=== PATIENT | male | born 1995 | race Caucasian/White ===

== ENCOUNTER 2025-03-05 11:07 | Emergency (ER) | payer SELFPAY ==
[2025-03-05] VITALS (8 sets, daily range): BP systolic 128–165; BP diastolic 91–106; PULSE 108–120; RESP 14–21; TEMP 36.6–38.9; O2SAT 97–99
--- NOTE | ~2025-03-05 | US_ITS ---
EXAMINATION: US scrotum doppler DATE: 03/05/2025 12:29 INDICATION: Right testicular pain TECHNIQUE: Testicular sonogram utilizing grayscale and Doppler COMPARISON: None. FINDINGS: The right testis measures 4.0 x 2.5 x 2.6 cm. The left testis measures 3.4 x 2.5 x 3.5 cm. Symmetric normal grayscale appearance to both testes. There is normal vascular flow to both testes. The right e pididymis is normal with normal vascular flow. The left epididymis is normal with normal vascular dewayne w. There is no varicocele or hydrocele. IMPRESSION: 1. Normal scrotal ultrasound. Reviewed, dictated and finalized at location A.
--- NOTE | 2025-03-05 12:05 | ED.GENADULT ---
HPI - General Adult General Chief complaint: Urogenital-Male Stated complaint: r/ torsion Time Seen by Provider: 03/05/25 11:47 History of Present Illness HPI narrative: 29-year-old male presents emergency department for evaluation for right-sided testicular pain. Patient began developing sore throat a few days ago and right testicular pain this morning at 6:00 a.m.. Patient denies any falls or injuries patient denies any recent coughs colds or fevers and denies any pain with urination. Patient denies any high-risk sexual behavior. Patient initially presented to [facility] and was referred to our hospital for ultrasound. Patient reports he was diagnosed with strep throat and treated with IM penicillin today Related Data Allergies Allergy/AdvReac Type Severity Reaction Status Date / Time No Known Allergies Allergy Verified 03/05/25 15:12 Review of Systems Review of Systems: All systems reviewed & are unremarkable except as noted in HPI and below Exam Narrative: APPEARANCE: Well appearing, no pain, no distress, well-nourished. HEAD: normocephalic, atraumatic. EYES: PERRLA/EOMI, conjunctivae clear. NOSE: Normal no drainage EARS:TMS clear with good light reflex. THROAT: Pharynx clear, no exudate. NECK: Supple. No adenopathy, no masses. RESPIRATORY: Airway patent, respirations nonlabored. Clear to auscultation bilaterally, no rales, rhonchi, wheezing. CARDIOVASCULAR: Regular rate and rhythm without murmurs rubs or gallops. ABDOMINAL: Soft, nontender, nondistended, normal bowel sounds MUSCULOSKELETAL: Moves all extremities. Strength/ROM intact, No edema, No calf tenderness. NEURO: Alert. Cranial nerves II through XII intact. Good gait. Good coordination SKIN: Warm, dry. Normal Color General exam: Right testicular tenderness, and no evidence of cellulitis, edema or high-riding testicle Course Vital Signs Vital signs: Vital Signs Temperature 98 F 03/05/25 11:05 Pulse Rate 108 H 03/05/25 11:05 Respiratory Rate 20 03/05/25 11:05 Blood Pressure 144/105 H 03/05/25 11:05 Pulse Oximetry 97 03/05/25 11:05 Oxygen Delivery Room Air 03/05/25 11:05 Temperature 100.0 F H 03/05/25 17:15 Pulse Rate 110 H 03/05/25 17:15 Respiratory Rate 20 03/05/25 17:15 Blood Pressure 128/91 H 03/05/25 17:15 Pulse Oximetry 99 03/05/25 17:15 Oxygen Delivery Room Air 03/05/25 11:05 Medical Decision Making MDM Narrative Medical decision making narrative: 29-year-old male presenting to the emergency department from local ER for ultrasound to rule out torsion. Ultrasound was negative for torsion. UA was positive for urinary tract infection. Patient is not retaining any urine. Patient was negative for gonorrhea and chlamydia. Patient states he has had a prior urinary tract infection previously but was unsure the underlying cause. Patient is not diabetic. Patient was treated with a L of IV fluids, Tylenol Toradol and IV Rocephin. Patient family were updated the results of the workup patient was comfortable with plan for discharge and close follow-up. Patient will be discharged home with Keflex. Patient was treated with a dose of penicillin for strep throat at the outside hospital. Differential Diagnosis Differential Diagnosis: Urinary tract infection, GC, chlamydia, urinary retention, torsion, epididymitis, hydrocele, varicocele Vital Signs Vital Signs: Vital Signs Temperature 98 F 03/05/25 11:05 Pulse Rate 108 H 03/05/25 11:05 Respiratory Rate 20 03/05/25 11:05 Blood Pressure 144/105 H 03/05/25 11:05 Pulse Oximetry 97 03/05/25 11:05 Oxygen Delivery Room Air 03/05/25 11:05 Temperature 100.0 F H 03/05/25 17:15 Pulse Rate 110 H 03/05/25 17:15 Respiratory Rate 20 03/05/25 17:15 Blood Pressure 128/91 H 03/05/25 17:15 Pulse Oximetry 99 03/05/25 17:15 Oxygen Delivery Room Air 03/05/25 11:05 Lab Data Lab results reviewed: Yes I reviewed the patient's lab results. Labs: Lab Results 03/05/25 Range/Units 13:30 Urine Color Dark yellow (Yellow) Urine Appearance Cloudy H (Clear) Urine pH 6.5 (5.0-9.0) Ur Specific [place] 1.032 (1.001-1.035) Urine Protein 3+ H (Negative) mg/dL Urine Glucose (UA) Negative (Negative) mg/dL Urine Ketones 2+ H (Negative) mg/dL Ur Blood (Man) 2+ H (Negative) Urine Nitrate Negative (Negative) Urine Bilirubin Negative (Negative) Urine Urobilinogen 4.0 H (<2.0) mg/dL Leukocyte Esterase Rfl 1+ H (Negative) PHYLICIA/UL Urine RBC 51-100 H (0-2) /hpf Urine WBC >100 H (0-3) /hpf Ur Squamous Epith Cells None seen (Few) /hpf Urine Bacteria None seen /hpf Urine Casts 0-2 C. trachomatis (PCR) Not detected (NOT DETECTE) N. gonorrhoeae (PCR) Not detected (NOT DETECTE) Imaging Data Radiologist's impression: Impressions Scrotum Ultrasound 03/05/25 12:31 IMPRESSION: 1. Normal scrotal ultrasound. Discharge Plan Discharge Clinical Impression: Pain in right testicle, Urinary tract infection Patient Disposition: Home Condition: Stable Instructions: Antibiotic Form Additional Instructions: Tylenol and ibuprofen for pain control. Drink plenty of fluids. Antibiotic as directed until completed. Have close follow-up with your primary care physician. If you have any worsening symptoms then please call or return to the emergency department. Patient Language: U[place] Prescriptions: New cephalexin 500 mg capsule 500 mg PO Q8H 7 Days Qty: 21 0RF Follow-up/Referrals: UNKNOWN,DOCTOR [Primary Care Provider] - Stand Alone Forms: Work/School Release IP
[2025-03-05 13:42] LABS: Add Urine Microscopic? YES; Appearance Urine Cloudy (Clear); Bacteria Urine None Seen /hpf; Bilirubin Urine Negative (Negative); Blood Urine 2+ (Negative); Color Urine Dark Yellow (Yellow); Glucose Urine UA Negative (Negative); Ketones Urine 2+ mg/dL (Negative); Leukocyte Esterase Ur 1+ LEU/UL (Negative); Nitrate Urine Negative (Negative); Non Pathogenic Casts 0-2; Protein Urine 3+ mg/dL (Negative); RBC Urine 51-100 /hpf (0-2); Specific Grav Ur 1.032 (1.001-1.035); Squamous Epithelial Cell Urine None Seen /hpf (Few); WBC Urine >100 /hpf (0-3); pH Urine 6.5 (5.0-9.0)
[2025-03-05 15:05] LABS: Chlamydia trachomatis NOT DETECTED (NOT DETECTE); Neisseria gonorrhoeae PCR NOT DETECTED (NOT DETECTE)
[2025-03-05] MEDS: ACETAMINOPHEN 500 MG TABLET 1000 MG PO (15:12)
[2025-03-05] MEDS: KETOROLAC 15 MG/ML VIAL (*BKC) IV PUSH (15:13)
[2025-03-05] MEDS: LACTATED RINGERS 1,000 ML 999 ML IV CONT (15:25)
--- OUTSIDE RECORDS SUMMARY | 2025-03-05 16:32 | XMS_ITS | Encounter Summary ---
Author Organization [facility] Address [address] [place] [address] Phone Care Team Providers Care Drafter Engineering Name Role Phone Provider, None Primary Care Provider Unavailabl e Encounter Details Date Type Department Care Team (Late st Contact Info) Description 10/20/2024 Lab Requisition [facility] [address] [place] [address] Constantino Luther, [facility] [address] [place] [address] Encounter for pre-employment examination Social History Tobacco Use Types Packs/Day Years Used Date Smoking Tobacco: Never Assessed Sex and Gender Information Value Date Recorded Sex Assigned at Not on file Legal 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 Gender Identity Not on file Sexual Orientation Not on file documented as of this encounter Plan of Treatment Not on file documented as of this encounter Procedures Procedure Name Priority Date/Time Associated Diagnosis Comments QUANTIFERON-TB GOLD PLUS Routine 10/20/2024 10:05 AM BOARD WINDER Encounter for pre-employment examination documented in this encounter Results * QUANTIFERON-TB GOLD PLUS (10/20/2024 10:05 AM BOARD WINDER) NIL CONTROL 0.01 <8.01 IU/mL 10/22/2024 12:05 PM BOARD WINDER [facility] TB ANTIGEN 1 0.16 <0.35 IU/mL 10/22/2024 12:05 PM BOARD WINDER [facility] TB ANTIGEN 2 0.07 <0.35 IU/mL 10/22/2024 12:[address] [facility] MITOGEN CONTROL 9.99 >0.49 IU/mL 10/22/20 12:[address] [facility] INTEPRETATION TB NEGATIVE NEGATIVE, NEGATIVE (TB antigen response less than 25% of internal negative control value) 10/22/2024 12:[address] [facility] Comment:No immune response t o Mycobacterium tuberculosis antigens was noted. M. tuberculosis infection unlikely. Blood No Phlebotomy Charged / Unknown 10/20/2024 10:05 AM BOARD WINDER 10/20/2024 1:59 PM BOARD WINDER Narrative [facility] - 10/22/2024 12:05 PM BOARD WINDER A POSITIVE QUANTIFERON-TB GOLD PLUS RESULT SHOULD NOT BE THE SOLE OR DEFINITIVE BASIS FOR DETERMINING INFECTION WITH M.TUBERCULOSIS. Diagnosing or excluding tuberculosis disease, and assessing the probability of LTBI, requires a combination of epidemiological, historical, medical and diagnostic findings (e.g., acid fast bacilli (AFB) smear and culture, chest xray) that should be taken into account when interpreting QFT-Plus results. Furthermore, the magnitude of the measured gamma interferon level cannot be correlated to stage or degree of infection, level of immune responsiveness, or likelihood for progression to active disease. The Nil control adjusts for background (e.g., elevated levels of circulating gamma interferon or presence of heterophile antibodies). The Mitogen control serves as an internal positive control and verifies each specimen tested can produce a gamma interferon response. Low mitogen may occur with insufficient lymphocytes, reduced lymphocyte activity due to improper specimen handling, filling/mixing of the mitogen tube, or inability of the patient's lymphocytes to generate gamma interferon. Infection with other Mycobacteria, including M. kansasii, M. szulgai, and M. marinum, may cause false positive results. A negative QuantiFERON-TB Gold Plus result does not preclude the possibility of M. tuberculosis infection or tuberculosis disease: false negative results can be due to incorrect blood sample collection/ improper handling of the specimen, stage of infection (e.g., specimen obtained prior to the development of cellular immune response), co-morbid conditions which affect immune function, or other individual immunological factors. The minimum number of lymphocytes required for a reliable test has not been established and may also be variable. Diagnostic testing for Mycobacterium tuberculosis using Interferon Gamma Release Assays should follow applicable published guidelines, including when testing in populations such as children, women, and HIV-infected or otherwise immunocompromised individuals. https://www.cdc.gov/tb/publications/guidelines/testing.htm us Constantino Luther PAC IMMUNOLOGY ORDERABLES Final Result [facility] [address] [place] [address], [place] documented in this encounter Visit Diagnoses Diagnosis Encounter for pre-employment examination Health examination of defined subpopulation documented in this encounter Care Teams Drafter Engineering Relationship Specialty Start Date End Date Provider, None [place] PCP - General 10/20/24 documented as of this encounter
--- OUTSIDE RECORDS SUMMARY | 2025-03-05 16:32 | XMS_ITS | Clinical Summary ---
Author Organization [facility] Address [address] [place] [address] Care Team Providers Care Interventional Physician Name Role Phone None, Provider MD Primary Care Provider Unavaila ble Allergies No known active allergies Medications ondansetron 4 MG disintegrating tablet Take 1 tablet (4 mg total) by mouth every 8 (eight) hours as needed for Nausea. 10 tablet 1 Active guaiFENesin-Codeine (ROBITUSSIN AC SUGAR FREE 10-100 MG/5ML OR SYRP)Indications:Co ugh Take 10 mLs by mouth every 4 (four) hours as needed. Indications : Cough 240 mL 1 Active rivaroxaban 15 MG tablet Take 1 tablet (15 mg total) by mouth daily with supper. 42 tablet 1 Active rivaroxaban 20 MG Tab tablet Take 1 tablet (20 mg total) by mouth daily with supper. Take with food 30 tablet 1 Active Social History Tobacco Use Types Packs/Day Years Used Date Smoking Tobacco: Every Day Electronic Cigarettes Smokeless Tobacco: Never Alcohol Use Standard Drinks/Week Comments Yes 0 (1 standard drink = 0.6 oz pur e alcohol) weekly Sex and Gender Information Value Date Recorded Sex Assigned at Not on file Legal Sex Male 4:38 PM CDT Gender Identity Not on file Sexual Orientation Not on file Last Filed Vital Signs Vital Sign Reading Time Taken Comments Blood Pressure 158/98 11/07/2021 11:34 AM DATA CENTER ENGINEER Pulse 95 11/07/2021 11:34 AM DATA CENTER ENGINEER Temperature 36.4 C (97.5 F) 11/07/2021 11:34 AM DATA CENTER ENGINEER Respiratory Rate 18 11/07/2021 11:34 AM DATA CENTER ENGINEER Oxygen Saturation 97% 11/07/2021 11:34 AM DATA CENTER ENGINEER Inhaled Oxygen Concentration - - Weight 111.1 kg (245 lb) 11/07/2021 11:34 AM DATA CENTER ENGINEER Height 177.8 cm (5' 10 ) 11/07/2021 11:34 AM DATA CENTER ENGINEER Body Mass Index 35.15 11/07/2021 11:34 AM DATA CENTER ENGINEER Plan of Treatment Health Maintenance Due Date Last Done Comments Hepatitis B Vaccines (3 of 3 - 3-dose series) 07/27/1997 06/01/1997, 1996 Annual Physical 1999 HPV Vaccines (2 - Male 3-dose series) 08/28/2011 07/31/2011 Hepatitis C 2014 DTaP, Tdap and Td Vaccines (5 - Td or Tdap) 07/04/2019 07/04/2009, 12/02/1997, 06/01/1997, Additional history exists COVID-19 Vaccine ( season) 2024 Meningococcal Vaccine Aged Out 07/04/2009 No amber sergio eligible based on patient's age to complete this topic Meningococcal B Vaccine Aged Out No l onger eligible based on patient's age to complete this topic Pneumococcal Vaccine: Pediatrics (0 to 5 Years) and At-Risk Patients (6 to 49 Years) Aged Out No longer eligible based on patient's age to complete this topic RSV Immunizations Under 20 Months Aged Out No longer eligible based on patient's age to complete this topic Care Teams Interventional Physician Relationship Specialty Start Date End Date None, Provider, PCP - General 09/29/21
--- OUTSIDE RECORDS SUMMARY | 2025-03-05 16:32 | XMS_ITS | Clinical Summary ---
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 Gender Identity Not on file Sexual Orientation Not on file Plan of Treatment Health Maintenance Due Date Last Done Comments Hepatitis C Virus (HCV) Screening 1996 Hepatitis B Immunization (3 of 3 - 3-dose series) 07/27/1997 06/01/1997, 1996 Influenza Immunization (#1) 07/04/202408/04, 08/22/2021, 08/22/2020, Additional history exists SARS-COV-2 Immunization ( season) 2024 Respiratory Syncytial Virus (RSV) Immunization (Adult) (1 - 1-dose 75+ series) 2071 Meningococcal Immunization (ACWY) Completed 04/15/2014, 07/04/2009 TdaP Immunization Completed 04/15/2014, 07/04/2009 Pneumococcal Immunization Combined Aged Out No longer eligible based on patient's age to complete this topic Rotavirus Immunization Aged Out No lo nger eligible based on patient's age to complete this topic Care Teams Steam Room Attendant Relationship Specialty Start Date End Date Provider, [place] PCP - General 10/20/24
== END 2025-03-05 17:26 | disposition home or self-care (01) ==
PROVIDERS: Emergency Provider Emergency Medicine
DX: N50.811 Right testicular pain (principal); N39.0 Urinary tract infection, site not specified
CPT/HCPCS: 76870; 81001; 87086; 87491; 87591; 93976; 96361; 96365; 96375; 99284; A9270; J0696; J1885; J7120